=== PATIENT | female | born 1945 | race Caucasian/White ===

== ENCOUNTER → 2020-07-04 | Day surgery (SDC) | payer MEDICARE, OTHER ==
[2020-06-29 11:11] LABS: BASOPHILS % 0.5 % (0.0-1.0); EOSINOPHILS # (AUTO) 0.2 (0.0-0.4); EOSINOPHILS % 2.5 % (0.0-6.0); HEMATOCRIT 34.7 % (34.2-44.1); HEMOGLOBIN 11.3 g/dL (12.0-16.0); LYMPHOCYTES # (AUTO) 1.4 (1.0-3.2); LYMPHOCYTES % 18.7 % (18.0-39.1); MEAN CORPUSCULAR HGB CONC 32.6 g/dL (31-35); MEAN CORPUSCULAR VOLUME 89.2 fL (81-99); MONOCYTES # (AUTO) 0.7 (0.2-0.8); MONOCYTES % 8.6 % (4.4-11.3); NEUTROPHILS # (AUTO) 5.3 (2.1-6.9); NEUTROPHILS % 69.1 % (38.7-80.0); PLATELET COUNT 267 x10e3/uL (140-360); RED BLOOD COUNT 3.89 x10e6/uL (3.6-5.1)
[~2020-07-04] MED LIST: CARVEDILOL12.5 MG PO; CRESTOR10 MG PO; FISH OIL 1,0001 EAC2 PO; LEVEMIR100 UNIT/1 INJ; LEVOTHYROXINE50 MCG PO; LOSARTAN-HCTZ1 EAC1 PO; METFORMIN HCL500 M2 PO; MULTIVITAMIN PO; OR PHACO EYE KIT ONE; PREOP PHACO EYE KIT ONE; [UNRECOGNIZED DRUG - OTHER] PO
[2020-07-04 13:21] VITALS: BP 130/72
== END | disposition home or self-care (01) ==
LOC: OR 16:19
PROVIDERS: ATTEND Ophthalmology
DX: H25.11 Age-related nuclear cataract, right eye (principal); G47.33 Obstructive sleep apnea (adult) (pediatric); I10 Essential (primary) hypertension; E78.5 Hyperlipidemia, unspecified; E03.9 Hypothyroidism, unspecified; E11.9 Type 2 diabetes mellitus without complications; Z91.041 Radiographic dye allergy status; Z01.812 Encounter for preprocedural laboratory examination; Z20.822 Contact with and (suspected) exposure to COVID-19; Z79.4 Long term (current) use of insulin
CPT/HCPCS: 36415; 66984; 85025; 93005; U0002; V2632

== ENCOUNTER → 2020-07-18 | Day surgery (SDC) | payer MEDICARE ==
[~2020-07-18] MED LIST changes: +AMOXICILLIN500 MG PO; +FUROSEMIDE40 MG PO; +THYROID MEDICATION PO
[2020-07-18 12:17] VITALS: BP 127/51
== END | disposition home or self-care (01) ==
LOC: OR 08:57
PROVIDERS: ATTEND Ophthalmology
DX: H25.12 Age-related nuclear cataract, left eye (principal); G47.33 Obstructive sleep apnea (adult) (pediatric); I10 Essential (primary) hypertension; E11.9 Type 2 diabetes mellitus without complications; E03.9 Hypothyroidism, unspecified; Z01.812 Encounter for preprocedural laboratory examination; Z20.822 Contact with and (suspected) exposure to COVID-19; Z91.041 Radiographic dye allergy status; Z79.4 Long term (current) use of insulin
CPT/HCPCS: 66984; U0002; V2632